=== PATIENT | male | born 1950 | race Caucasian/White ===

== ENCOUNTER 2018-12-21 22:39 | Inpatient (IN) | payer OTHER ==
[~2018-12-21] VITALS: Ht 188 cm; Wt 99.3 kg
[~2018-12-21 22:39] MED LIST: ASPIRIN325 PO; BYSTOLIC 5 MG5 M1 PO; CARDIZEM CD180 MG PO; COLACE100 MG PO; COZAAR 50 MG TA50 M2 PO; ENOXAPARIN100 MG/11 SUBQ; IMDUR 30 MG TAB30 M1; LIVALO2 MG PO; MULTAQ400 MG PO; NITROGLYCERIN0.4 MG; NITROGLYCERIN0.4 MG SUBLING; PACERONE 200 M200 M1 PO; PROTONIX40 M1 PO; PROTONIX40 M2 PO; SAVAYSA60 MG PO; ZOCOR 10 MG TAB10 MG PO
[2018-12-21 22:40] VITALS: BP 154/78
[2018-12-21] MEDS ORDERED: ASPIR 8181 MG PO (22:50)
[2018-12-21] MEDS ORDERED: ELIQUIS5 MG PO (22:53)
[2018-12-21] MEDS ORDERED: ZYPITAMAG2 MG PO (22:54)
[2018-12-22 03:25] LABS: HEMATOCRIT 42.9 % (42.0-52.0); HEMOGLOBIN 14.3 gm/dL (14.0-18.0); MCH 29.9 pg (26.0-34.0); MCHC 33.4 g/dL (28.0-37.0); MCV 89.6 fL (80.0-100.0); RBC 4.79 mil/uL (4.50-6.00); RDW 13.3 % (10.5-14.5); WBC 13.4 thou/uL (4.0-11.0)
[2018-12-22 03:44] LABS: ANION GAP 11 mmol/L (7-16); BUN 18 mg/dL (7-18); CALCIUM 9.5 mg/dL (8.5-10.1); CHLORIDE 104 mmol/L (98-107); CHOLESTEROL 111 mg/dL (<200); CO2 26 mmol/L (21-32); CREATININE 1.3 mg/dL (0.7-1.3); GLUCOSE 154 mg/dL (74-106); HDL CHOLESTEROL 39 mg/dL (>40); LDL CHOLESTEROL 54 mg/dL (<100); POTASSIUM 4.3 mmol/L (3.5-5.1); SODIUM 141 mmol/L (136-145); TC:HDL 2.8 Ratio (Not establshd); TRIGLYCERIDE 91 mg/dL (<150); VLDL 18 mg/dL (<40)
[2018-12-22 03:56] LABS: SERUM ASSESSMENT Clear
--- NOTE | 2018-12-22 04:38 | NUR ---
PT ARRIVED UNIT AT ABOUT 2230 FROM [place]. PT A/OX4, VITAL SIGHS STABLE, ASSESSMENT CHARTED, NSR ON THE MONITOR. PT COMPLAINED OF CHEST RATED AT 4. PT WAS ON NITROGLYCERIN DRIP, AND HEPARIN DRIP. PT STATED THE FENTANYL HE HAD RECIEVED AT [facility] HAD HELPED WITH THE CHEST PAIN. HE STATED THE PAIN WAS NON-RADIATING. NITRO AND HEPARIN DRIP CONTINUED ORDERED. AT ABOUT 0000, PT RATED CHEST PAIN AT 5. FENTANYL WAS GIVEN WHICH SEEMED TO HELP. CONSENTS SIGNED, ADMISSION COMPLETED, MEDICATIONS RECONCILLED. PT ABLE TO AMBULATE TO THE BATHROOM INDEPENDEDNTLY BUT ENCOURAGED TO CALL FOR HELP WHEN/ NEEDED. PT RESTED WELL FOR THE REST OF THE NIGHT. DID NOT OMPLAIN MUCH ABOUT THE CHEST PAIN. NPO SINCE MIDNIGHT UNTILL SEEN BY CARDIOLOGY. IN ROOM RESTING. WILL CONTINUE TO CLOSELY MONITOR.
[2018-12-22 05:27] VITALS: BP 116/69
[2018-12-22 08:00] VITALS: BP 129/65
--- NOTE | 2018-12-22 08:47 | EKG ---
[place] [address] [facility] [place] [address] ELECTROCARDIOGRAM REPORT Name: ALEXANDER MURCIA Room #: 219-P ADM IN M.R.#: [id number] ������������������ Admission: 12/21/18 ������������������ Attend Phys: Nik Andersen MD Discharge: ������������������ Date of : 46 Report #: [id number] ����������������������������������������������������������������� [id number] THIS REPORT FOR: //name// 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 : 1950 Requested By: Xuan Oneal Order Number: [id number] MD: Alton Bertrand Measurements Intervals [place] Rate: 69 P: 55 CT: 178 QRS: 41 QRSD: 98 T: 23 QT: 391 QTc: 419 Interpretive Statements Sinus rhythm Small inferior Q waves Borderline T wave abnormalities Compared to ECG 10/24/2015 23:40:28 Sinus bradycardia no longer present Electronically Signed On 12-22-2018 8:47:09 CDT by Alton Bertrand [email or web address] ��������������������������������������������� <ELECTRONICALLY SIGNED> ���������������������������������������� By: Alton Bertrand MD, [facility] ��������������������������������������������� 12/22/18 0847 8 8 Alton Bertrand MD, [facility] /EPI
--- NOTE | 2018-12-22 16:43 | NUR ---
PT ALERT AND ORIENTED TIMES FOUR. VSS, 96%RA, SR ON TELE. C/O HEADACHE PRN PAIN MEDICATION GIVEN WITH GOOD RELEIF. PT TOLERATES MEDS AND MEALS. PT UP WALKING AROUND IN HALLWAYS WITH STEADY GAIT. AT BEDSIDE. PT PROGRESSING TOWRADS POC GOALS.
[2018-12-22 19:56] VITALS: BP 132/68
[2018-12-23 05:18] LABS: HEMATOCRIT 44.7 % (42.0-52.0); HEMOGLOBIN 14.8 gm/dL (14.0-18.0); MCH 30.3 pg (26.0-34.0); MCV 91.6 fL (80.0-100.0); RBC 4.88 mil/uL (4.50-6.00); WBC 10.7 thou/uL (4.0-11.0)
[2018-12-23 05:22] LABS: CALCIUM 9.2 mg/dL (8.5-10.1); CREATININE 1.3 mg/dL (0.7-1.3); POTASSIUM 3.9 mmol/L (3.5-5.1)
--- NOTE | 2018-12-23 05:36 | NUR ---
ASSUMED CARE AROUND 1900. AXOX4. ADMIT WITH CHEST PAIN. DENIES CHEST PAIN. MINOR HEADACHE. TX PER MD ORDER AND MIDWAY THRU, REPORTS RELIEF. NEGATIVE TROPONIN IN AM. OBTAINED AN ORDER TO OK TO DC TELE WHILE IN SHOWER. NO S/S ACUTE DISTRESS NOTED OR REPORTED AT THIS TIME. WILL CONT TO MOTNITOR FOR ANY CHANGES IN CONDITION.
[2018-12-23 06:00] VITALS: BP 147/73
--- NOTE | 2018-12-23 08:34 | EKG ---
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 : 1950 Requested By: Nisreen Aldrich Order Number: [id number] MD: Vance Morgan Measurements Intervals [place] Rate: 70 P: 54 [place]: 170 QRS: 52 QRSD: 102 T: 33 QT: 389 QTc: 420 Interpretive Statements Sinus rhythm Abnormal inferior Q waves Borderline T wave abnormalities Compared to ECG 12/22/2018 07:29:36 No significant changes Electronically Signed On 12-23-2018 8:34:24 CDT by Vance Morgan [email or web address] ��������������������������������������������� <ELECTRONICALLY SIGNED> ���������������������������������������� By: Vance Morgan MD ��������������������������������������������� 12/23/1834 1 1 Vance Morgan MD /KHUSHBU
[2018-12-23 09:20] VITALS: BP 129/76
[2018-12-23] MEDS ORDERED: PROTONIX40 M1 PO (10:25)
[2018-12-23 11:01] VITALS: BP 129/76
--- NOTE | 2018-12-23 11:09 | NUR ---
VSS. PT DENIES ANY PAIN OR DISCOMFORT. SINUS RHYTHM ON THE MONITOR. UP AD CAL IN ROOM. AMBULATING AROUND UNIT. OKAY TO D/C PER CARIDOLOGY. FOLLOW UP APPOINTMENT WITH DR. TAMAYO ALREADY SCHEDULED FOR TOMORROW 12/24. DISHCARGE SUMMARY REVIEWED AND SENT HOME WITH PATIENT. SCRIPT FOR PROTONIX GIVEN. IV'S TAKEN OUT. TELE MONITOR OFF. PATIENT DENIES ANY QUESTIONS OR CONCERNS AT THIS TIME.
== END 2018-12-23 12:06 | disposition home or self-care (01) | DRG 303 ==
LOC: 2N 22:39 → ENTRNSPT 12-23 11:22 → EDTRNSPTSTS 12-23 11:26 → 2N 12-23 12:06
PROVIDERS: Nurse Practitioner Family; Nurse Practitioner Gerontology; ADMIT Hospitalist
DX: I25.110 Atherosclerotic heart disease of native coronary artery with unstable angina pectoris (principal); I10 Essential (primary) hypertension; E78.5 Hyperlipidemia, unspecified; E78.00 Pure hypercholesterolemia, unspecified; K21.9 Gastro-esophageal reflux disease without esophagitis; I48.0 Paroxysmal atrial fibrillation; G89.4 Chronic pain syndrome; I25.2 Old myocardial infarction; Z95.1 Presence of aortocoronary bypass graft; Z95.5 Presence of coronary angioplasty implant and graft; Z79.01 Long term (current) use of anticoagulants; Z79.82 Long term (current) use of aspirin; Z79.899 Other long term (current) drug therapy; Z88.5 Allergy status to narcotic agent
CPT/HCPCS: 10081

== ENCOUNTER 2018-12-24 09:38 | Inpatient (IN) | payer OTHER ==
[~2018-12-24] VITALS: Ht 182.9 cm; Wt 107.5 kg
--- NOTE | ~2018-12-24 | O ---
[facility] [place] [address] OPERATIVE REPORT Name: ALEXANDER MURCIA Room #: 210-P [facility] IN M.R.#: [id number] Admission: 12/24/18 ������������������ Attend Phys: Brian Schmidt MD Discharge: ������������������ Date of : 48 Report #: [id number] THIS REPORT FOR: //name// CC: Brian Guzmán DATE OF SERVICE: 12/26/2018 PREOPERATIVE DIAGNOSIS: Acute cholecystitis. POSTOPERATIVE DIAGNOSIS: Acute cholecystitis. OPERATIVE PROCEDURE: Laparoscopic cholecystectomy. SURGEON: Dane Damon M.D. INDICATIONS FOR THE PROCEDURE: The patient is a 67-year-old male who presents with complaints of right upper quadrant pain for one day. The patient's clinical exam and ultrasound scan that was done showed features of acute cholecystitis. The patient was advised laparoscopic cholecystectomy. The patient showed understanding and agreed to proceed. DESCRIPTION OF PROCEDURE: After explaining to the patient in detail, an informed consent was obtained. The patient was identified in the preoperative holding area. The patient was transferred to the operating room and was placed in supine position. Sequential compressive devices were placed for DVT prophylaxis. Preoperative antibiotics were given. After induction of anesthesia, the abdomen was prepped and draped in a sterile fashion. Through a right upper quadrant 1 cm incision and using Optiview technique, peritoneal cavity was entered and pneumoperitoneum was created. Under direct vision, another 5-mm trocar was placed through a supraumbilical incision, another 5-mm trocar was placed in the epigastrium and one in the right lateral subcostal region. On initial inspection, the patient was noted to have a severely inflamed gallbladder that appeared very edematous and turgid. The fundus of the gallbladder was ____. There was a small ____ noted just on the infundibulum of the gallbladder. Using a laparoscopic needle, approximately about 50 mL of thick bile was removed. I started ____ dissection at the Calot's triangle was very difficult and the exposure was getting difficult and therefore, I started at the fundus first approach. I started to take down the fundus using hook electrocautery. There was oozing from the liver bed and from the gallbladder tissue. However, because of the severe inflammation, it was noted. I continued dissection of the fundus. The proximal transverse colon was also found to be adherent onto the dome of the gallbladder, which was gently dissected off. I continued dissection towards the infundibulum. Dissection was very tedious and difficult with abnormal anatomy and adherent adhesion and [facility] [address] [place] [address] OPERATIVE REPORT Name: ALEXANDER MURCIA Room #: 210-P [facility] IN ..#: [id number] Admission: 12/24/18 ������������������ Attend Phys: Brian Schmidt MD Discharge: ������������������ Date of : 48 Report #: [id number] bleeding. I then identified the cystic artery, which was then isolated. The peritoneal reflections along the neck of the gallbladder were gently dissected off. The cystic duct was identified and was isolated from the surrounding structures. I was finally able to divide the cystic artery, double clipped proximally, single clip applied distally and was then divided. The cystic duct was then divided using 2 clips proximally and 1 clip distally as the cystic duct caliber was big. I then placed an Endoloop onto the cystic duct stump. The gallbladder was finally removed from the liver bed and was retrieved using an EndoCatch through the lateral most incision. Thorough saline irrigation of this area was done and absolute hemostasis was ensured. I sprayed Ristocetin over the liver bed area for good hemostasis. A 19-Sammarinese CECILIO drain was placed through the lateral most incision. The incisions were closed with 4-0 Monocryl. The lateral most incision was closed in 2 layers using 0 Vicryl for the fascia. Skin was closed with 4-0 Monocryl for all the incisions. Approximately, about 10 mL of lidocaine and Marcaine mix was injected into all the incisions. The patient was awoken from anesthesia and was transferred to the recovery room in stable condition. ESTIMATED BLOOD LOSS: Approximately 200 mL. CONDITION OF THE PATIENT: Stable. FLUIDS GIVEN: Per Anesthesia notes. SPECIMEN SENT: Gallbladder. COMPLICATIONS: None. ANESTHESIA: General anesthesia. ��������������������������������������������� ���������������������������������������� By: ��������������������������������������������� 1310 1655 Dane Damon MD /nt
[~2018-12-24 09:38] MED LIST changes: +ASPIR 8181 MG PO; +ELIQUIS5 MG PO; +ZYPITAMAG2 MG PO
[2018-12-24 09:43] VITALS: BP 176/86
[2018-12-24 10:15] LABS: HEMOGLOBIN 15.2 gm/dL (14.0-18.0); MCH 30.5 pg (26.0-34.0); MCHC 34.5 g/dL (28.0-37.0); MCV 88.3 fL (80.0-100.0); PLATELET COUNT 212 thou/uL (150-400); RBC 4.98 mil/uL (4.50-6.00); RDW 13.1 % (10.5-14.5); WBC 20.4 thou/uL (4.0-11.0)
[2018-12-24 10:25] LABS: CALCIUM 9.9 mg/dL (8.5-10.1); CREATININE 1.3 mg/dL (0.7-1.3)
[2018-12-24 10:31] LABS: ALBUMIN 3.9 g/dL (3.4-5.0); TOTAL PROTEIN 8.1 g/dL (6.4-8.2)
[2018-12-24 10:58] LABS: ABSOLUTE NEUTROPHILS 18.4 thou/uL (1.4-8.2); PLATELET ESTIMATE NORMAL
[2018-12-24 12:22] LABS: URINE BILIRUBIN NEGATIVE (Negative); URINE BLOOD 1+ (Negative); URINE CLARITY CLEAR; URINE COLOR YELLOW; URINE GLUCOSE-RANDOM* NEGATIVE (Negative); URINE KETONES 2+ (Negative); URINE LEUKOCYTES-REFLEX NEGATIVE (Negative); URINE NITRITE-REFLEX NEGATIVE (Negative); URINE PROTEIN (DIPSTICK) TRACE (Negative); URINE SPECIFIC GRAVITY 1.025 (1.005-1.035); URINE UROBILINOGEN 0.2 E.U./dl (0.2-1.0)
[2018-12-24 12:29] VITALS: BP 177/90
[2018-12-24 12:30] LABS: BACTERIA-REFLEX None Seen /HPF (None Seen); CASTS None Seen /LPF (None Seen); CRYSTALS None Seen /LPF (None Seen); SQUAMOUS None Seen /LPF (0-3); URINE RBC 0-2 Rare /HPF (0-2); URINE WBC-REFLEX None Seen /HPF (0-5)
[2018-12-24 12:32] VITALS: BP 177/90
[2018-12-24 12:39] VITALS: BP 177/90
[2018-12-24 13:21] VITALS: BP 187/75
--- NOTE | 2018-12-24 15:19 | NUR ---
PT ARRIVED TO UNIT IN STABLE CONDITION FROM ED AT 12:53 C/O UPPER ABD PAIN. PAIN MEDS GIVEN ORDERED. ADMISSION ASSESSMENT COMPLETED. A&O,X4. UP AD CAL. SKIN INTACT. BRUISING NOTED FROM OLD IV STICKS ON RECENT ADMISSION. HX CARDIAC STENTS, BYPASS SURGERY, HTN. NOTIFIED PHYSICIAN ABOUT TELEMETRY, NO TELEMETRY AT THIS TIME. SOME CONSTIPATION NOTED, LAST BM 12/21 - PT STATES HE HAS NOT BEEN EATING REGULARLY. AT BEDSIDE. PT WALKING IN HALLWAYS NOW. WILL CONTINUE TO MONITOR.
[2018-12-24 19:50] VITALS: BP 152/68
[2018-12-25 01:37] VITALS: BP 135/62
--- NOTE | 2018-12-25 03:50 | NUR ---
PT IS UP AD CAL. C/O ABDOMINAL PAIN AND GETTING RELIEF FROM IV DIULADID. PT GIVEN TYLENOL FOR SOME HEADACHE AND REPORTED VERY LITTLE TO ALMOST NO RELIEF.NO ISSUES WITH URINATION. DENIES SOA. SOME NAUSEA BUT HE HAS NOT REQUIRED ANY MEDS.NO CHEST PAIN, JUST SOME EPIGASTRIC DISCOMFORT.CALLS APPROPRIATELY. CALL LIGHT WITHIN REACH.
--- NOTE | 2018-12-25 08:19 | EKG ---
[address] [place] [address] ELECTROCARDIOGRAM REPORT Name: ALEXANDER MURCIA Room #: 423-1 ADM IN M.R.#: [id number] ������������������ Admission: 12/24/18 ������������������ Attend Phys: Brian Schmidt MD Discharge: ������������������ Date of : 48 Report #: [id number] ����������������������������������������������������������������� [id number] THIS REPORT FOR: //name// [facility] ED Test Date: 2018-12-24 Test Time: 09:44:48 Pat Name: ALEXANDER MURCIA Department: Room: [facility] Gender: M Manager Proposal: YORDY : 1950 Requested By: Jason Rangel Order Number: [id number] MD: Vance Morgan Measurements Intervals [place] Rate: 73 P: 48 [place]: 162 QRS: 45 QRSD: 101 T: -4 QT: 458 QTc: 505 Interpretive Statements Sinus rhythm Probable left atrial enlargement Abnormal inferior Q waves Borderline T abnormalities, anterior leads Compared to ECG 12/23/2018 07:22:47 Electronically Signed On 12-25-2018 8:18:50 CDT by Vance Morgan [email or web address] ��������������������������������������������� <ELECTRONICALLY SIGNED> ���������������������������������������� By: Vance Morgan MD ��������������������������������������������� 12/25/18817 3 Vance Morgan MD /KHUSHBU
--- NOTE | 2018-12-25 11:43 | NUR ---
Assumed pt care at 7am.Pt up adlib in the hallways with steady gait.Assessment completed.vss.Pt c/o headache and constipation.Dr Schmidt and Marlys geophysical support specialist here, order noted.Dulcolax supp given.Will continue to monitor.
--- NOTE | 2018-12-25 14:22 | NUR ---
Nutrition: pt admitted with abdominal/sternal pain. Seen due to high risk screen for weight loss/poor intake. Pt just D/C'ed following an admit for CP. Hx of CABG x 6, [place] x 3, HTN, HLD. Now with acalculus cholecystitis which is cause of epigastric pain, plan choly tomorrow. Current weight down 5# from usual (2%, BMI 29). Pt reports decreased apetite past few days due to pain but appears well nourished. Provided handouts/menus on heart healthy diet and fat restriction post choly. Consider low nutrition risk.
--- NOTE | 2018-12-25 15:14 | NUR ---
PT ADMITTED RELATED TO ABDOMINAL/STERNAL PAIN. CM REVIEWED CHART AND SPOKE WITH CARE TEAM. CM MET WITH PT AND SPOUSE AT BEDSIDE THIS DAY. PT IS A&O X4. CM ROLE INTRODUCED. PT INDICATED HE LIVES IN A HOUSE WITH HIS WITH 2 STEPS TO ENTER AND 2 FULL FLIGHT OF STEPS INSIDE. PT INDICATED HE COULD STAY ON MAIN LEVEL OF THE HOUSE IS NEEDED UPON DC. 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 PT INDICATED HE ANTICIPATES RETURNING HOME ONCE MEDICALLY STABLE. CARE TEAM INDICATED THAT PT IS TO BE TRANSFERED TO [facility] ROOM. CM TO FOLLOW INDICATED WITH DC PLANNING.
[2018-12-25 15:20] VITALS: BP 149/76
[2018-12-25 16:00] VITALS: BP 158/76
--- NOTE | 2018-12-25 16:46 | NUR ---
PT ARRIVED TO UNIT AT APPROX 1600 WITH BELONGINGS ACCOMPANIED BY SPOUSE AND NURSING STAFF. PT ALERT AND ORIENTED, C/O HEADACHE, VSS-- HR ELEVATED AFIB ON MONITOR- CARDIOLOGY NOTIFIED ORDERS RECEIVED. PT UP AD CAL, DENIES SOB, CHEST PAIN. O2 SATS WNL ON ROOM AIR. TELE PUT ON, ADMIT STRIP PRINTED AND DOCUMENTED. WILL AWAIT FURTHER ORDERS NEEDED. PT DENIES CONCERNS AT THIS TIME.
--- NOTE | 2018-12-25 17:59 | NUR ---
PT CONTINUES TO BE ALERT AND ORIENTED, C/O ABD DISCOMFORT- PLAN FOR LAP JAMES TOMORROW. DR. GALAN VISITED PT, CARDIZEM BOLUS AND DRIP ORDERED, GTT CURRENTLY AT 10MG PER ORDERS. ORDERS RECEIVED TO MAINTAIN DILT GTT UNTIL DC'D, TITRATE NEEDED. CONT TO BE AFIB ON MONITOR BETTER CONTROLLED IN 90S LOW 100S, 120S-130S WITH ACTIVITY. PT DENIES CONCERNS AT THIS TIME, HOPEFUL FOR SURGERY IN AM. WILL CONT TO MONITOR AND FOLLOW POC.
[2018-12-25 20:02] VITALS: BP 140/80
[2018-12-25 23:33] VITALS: BP 128/66
[2018-12-26] VITALS (8 sets, daily range): BP systolic 105–126; BP diastolic 54–68
[2018-12-26 05:12] LABS: HEMATOCRIT 39.6 % (42.0-52.0); HEMOGLOBIN 13.3 gm/dL (14.0-18.0); MCH 30.6 pg (26.0-34.0); MCHC 33.7 g/dL (28.0-37.0); MCV 90.8 fL (80.0-100.0); RBC 4.36 mil/uL (4.50-6.00); RDW 13.7 % (10.5-14.5); WBC 15.4 thou/uL (4.0-11.0)
[2018-12-26 05:26] LABS: CALCIUM 8.7 mg/dL (8.5-10.1); CREATININE 1.4 mg/dL (0.7-1.3); POTASSIUM 3.7 mmol/L (3.5-5.1)
--- NOTE | 2018-12-26 05:39 | NUR ---
RECEIVED REPORT AROUND 1919; PT. ON BED; RELATIVE AT BED SIDE; ST. 12/31 PAIN; REFUSED PRN PAIN MEDICATION WITH HS MEDICATION; DURING RE-ASSESSMENT PT. RESTLESS; UNCOMFORTABLE; ST. NO HAVING PAIN; HS MEDICATION GIVEN; C/O BLOATED ABDOMEN; ABLE TO PASS GAS; AT 2330 TEMPERATURE 100'S; VENTILATOR ON; A/C ON; AFTER 30 MIN TEMPERATURE 99; AROUND 0130 TEMPERATURE 98.5; C/O ABDOMEND PAIN PRN PAIN MEDICATION GIVEN; EDUCATED ABOUT PAIN MANAGEMENT; ST. UNDERSTANDING; PAIN REASSESSMENT ; ABLE TO REST AFTER 0130 WITH EYES CLOSE; HR RYTHM A-FIB/A-FLUTTER; NPO AFTER MIDNIGHT; NO CONSENT SIGNED DUE TO PT. ST. DOCTOR HAS NOT EXPLAINED PROCEDURE ON DETAIL; WILL PASS ON REPORT; ASSESSMENT CHARGED; FOLLOWING POC; WILL PASS ON REPORT.
--- NOTE | 2018-12-26 15:18 | EKG ---
[address] [email or web address] [place] [address] ELECTROCARDIOGRAM REPORT Name: ALEXANDER MURCIA Room #: 210-P ADM IN M.R.#: [id number] ������������������ Admission: 12/24/18 ������������������ Attend Phys: Brian Schmidt MD Discharge: ������������������ Date of : 46 Report #: [id number] ����������������������������������������������������������������� [id number] THIS REPORT FOR: //name// [facility] Test Date: 2018-12-25 Test Time: 15:20:43 Pat Name: ALEXANDER MURCIA Department: Room: 210 Gender: M Traffic Chief: Ciarra JIMENEZ : 1950 Requested By: Brian Schmidt Order Number: [id number] MD: Rodrigo Lindsey Measurements Intervals [place] Rate: 143 P: [place]: QRS: 47 QRSD: 92 T: 243 QT: 267 QTc: 412 Interpretive Statements Atrial fibrillation Inferior infarct, age indeterminate Baseline wander Nonspecific ST-T wave changes Compared to ECG 12/24/2018 09:44:48 Early repolarization now present Sinus rhythm no longer present Electronically Signed On 12-26-2018 15:18:39 CDT by Rodrigo Lindsey [email or web address] ��������������������������������������������� <ELECTRONICALLY SIGNED> ���������������������������������������� By: Rodrigo Lindsey MD ��������������������������������������������� 12/26/18 1518 1520 1520 Rodriog Lindsey MD /EPI
--- NOTE | 2018-12-26 15:26 | EKG ---
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 : 1950 Requested By: Nisreen Aldrich Order Number: [id number] MD: Rodrigo Lindsey Measurements Intervals [place] Rate: 81 P: [place]: QRS: 40 QRSD: 108 T: -49 QT: 385 QTc: 447 Interpretive Statements Atrial fibrillation Nonspecific ST-T wave changes Early transition Compared to ECG 12/24/2018 09:44:48 atrial fibrillation ventricular response controlled Electronically Signed On 12-26-2018 15:26:47 CDT by Rodrigo Lindsey [email or web address] ��������������������������������������������� <ELECTRONICALLY SIGNED> ���������������������������������������� By: Rodrigo Lindsey MD ��������������������������������������������� 12/26/18 1526 9 9 Rodrigo Lindsey MD /EPI
--- NOTE | 2018-12-26 18:44 | NUR ---
PT BACK TO FLOOR FROM SURGERY. VSS. AFEBRILE. LAP SITES INTACT. R UQ CECILIO DRAIN INTACT. PT REPORTS PAIN IN SITE OF CECILIO DRAIN. WILL CONTINUE TO MONITOR. PT RESTING IN BED WITH CALL LIGHT IN REACH. WILL CONTINUE TO MONITOR.
[2018-12-27] VITALS: BP 125/72
[2018-12-27 05:20] VITALS: BP 126/71
[2018-12-27 07:45] VITALS: BP 138/69
--- NOTE | 2018-12-27 07:51 | NUR ---
pt progressing towards goals thru the night, pt now up adlib to br, prn pain meds given for c/o rlq pain, sara drain with sang. drainage thru the noc, reinforced sara dressing, vss, report given to next shift to con't with ppoc.
[2018-12-27 11:33] VITALS: BP 143/75
[2018-12-27 13:58] LABS: ALBUMIN 2.9 g/dL (3.4-5.0); CALCIUM 8.9 mg/dL (8.5-10.1); CREATININE 1.5 mg/dL (0.7-1.3); POTASSIUM 4.3 mmol/L (3.5-5.1); TOTAL BILIRUBIN 0.8 mg/dL (<0.1-1.0); TOTAL PROTEIN 6.6 g/dL (6.4-8.2)
[2018-12-27 14:21] LABS: HEMATOCRIT 41.1 % (42.0-52.0); HEMOGLOBIN 13.5 gm/dL (14.0-18.0); MCH 30.3 pg (26.0-34.0); MCHC 32.8 g/dL (28.0-37.0); MCV 92.2 fL (80.0-100.0); RBC 4.45 mil/uL (4.50-6.00); WBC 20.3 thou/uL (4.0-11.0)
--- NOTE | 2018-12-27 16:37 | NUR ---
ASSUMED CARE OF PT AT 15:30. ASSESSMENT COMPLETED, CHARTED. A&O,X4. C/O RUQ ABD PAIN S/P LAP JAMES, PAIN MEDS GIVEN ORDERED. 4 LAP SITES INTACT WITH DERMABOND, NO BLEEDING. CECILIO DRAIN IN PLACE RUQ, 50 ML SEROUSANGIOUS DRAINAGE. ROOM AIR. A. FLUTTER. DENIES SOA OR CHEST PAIN. REPORTING NEW ONSET BURPING POSSIBLY DUE TO NEW MEDS. NO OTHER CHANGE IN STATUS. WILL CONTINUE TO MONITOR UNTIL EOS.
[2018-12-27 19:21] VITALS: BP 157/87
--- NOTE | 2018-12-28 03:38 | NUR ---
RECEIVED PT'S CARE AROUND 1910; PT. ON BED; NO C/O PAIN; DURING ASSESSMENT ST. FEELING SOME RUQ PAIN, BUT NOT PAIN MEDICATION REQUESTED; ABLE TO HAVE A BM; AROUND 0040 PT. WOKE UP FEELING PAIN OVER RUQ; REQUESTED PRN PAIN MEDICATION; IV PRN PAIN MEDICATION GIVEN; EDUCATED ABOUT PAIN MANAGEMENT; ST. UNDERSTANDING; PO PRN PAIN MEDICATION GIVEN AROUND 0200; PA RE-ASSESSMENT ST. DECREASE PAIN; AT 2330 PT'S HEART RHYTHM CONVERT FROM A-FLUTTER TO NSR; STRIP ON CHART; ASSESSMENT CHARGED; FOLLOWING POC; WILL PASS ON REPORT.
[2018-12-28 04:10] VITALS: BP 146/83
[2018-12-28 08:45] VITALS: BP 146/87
[2018-12-28 11:20] VITALS: BP 121/90; BP 132/86
[2018-12-28 16:24] VITALS: BP 134/85
[2018-12-28 16:27] VITALS: BP 134/85
--- NOTE | 2018-12-28 17:26 | NUR ---
ASSUMED CARE OF PT AT SHIFT CHANGE. ASSESSMENTS CHARTED. MEDS GIVEN PER NOV. PT ALERT AND ORIENTED, VSS, C/O MILD ABDOMINAL PAIN, CONTROLLED WITH PO PAIN MEDS. NSR ON MONITOR. O2 SATS WNL ON ROOM AIR, DENIES CHEST PAIN, NO S/SX OF CARD OR RESP DISTRESS NOTED. PT UP AD CAL AND WALKED AROUND UNIT. CECILIO DRAIN REMOVED BY SURGEON, CURRENTLY DRESSED WITH GAUZE AND TAPE WITH MINIMAL DRAINAGE- WILL CONT TO MONITOR AND CHANGE NEEDED. PT C/O DIARRHEA, SURGEON NOTIFIED WHILE ROUNDING, NO NEW ORDERS. PT DENIES CONCERNS AT THIS TIME. WILL CONT TO MONITOR AND FOLLOW POC.
[2018-12-28 19:56] VITALS: BP 160/81
[2018-12-29] VITALS (7 sets, daily range): BP systolic 137–167; BP diastolic 69–89
[2018-12-29 03:20] LABS: HEMATOCRIT 35.7 % (42.0-52.0); HEMOGLOBIN 11.9 gm/dL (14.0-18.0); MCH 30.3 pg (26.0-34.0); MCHC 33.3 g/dL (28.0-37.0); RBC 3.92 mil/uL (4.50-6.00); RDW 13.9 % (10.5-14.5); WBC 6.5 thou/uL (4.0-11.0)
[2018-12-29 03:37] LABS: ALBUMIN 2.5 g/dL (3.4-5.0); CALCIUM 8.4 mg/dL (8.5-10.1); CREATININE 1.2 mg/dL (0.7-1.3); POTASSIUM 3.9 mmol/L (3.5-5.1); TOTAL BILIRUBIN 0.4 mg/dL (<0.1-1.0); TOTAL PROTEIN 6.3 g/dL (6.4-8.2)
--- NOTE | 2018-12-29 03:54 | NUR ---
PT AMBULATED HALLS BEFORE RETIRING TO BED AND RESTING QUIETLY THRU THE NOC, PRN PAIN MEDS GEVEN AT HS FOR RLQ PAIN, REDRESSED HIS OLD CECILIO DRAIN SITE AND IT REMAINS CDI, VSS, PT HOPING TO GO HOME TODAY, WILL CON'T TO MONITOR PER PPOC.
[2018-12-29] MEDS ORDERED: AUGMENTIN 875-1 EACH PO (09:24)
[2018-12-29] MEDS ORDERED: FLAGYL500 M1 PO (09:25)
[2018-12-29] MEDS ORDERED: PACERONE 200 M200 M1 PO (15:39)
--- NOTE | 2018-12-30 16:06 | PATH ---
[facility] [address] [place] [address] PATHOLOGY RPT PROCEDURE Name: ALEXANDER WORTHINGTON Room #: 210-P DIS IN M.R.#: [id number] ������������������ Admission: 12/24/18 ������������������ Date of : 46 Discharge: 12/29/18 Report #: [id number] Path Case #: [id number] [facility] Accession Number: [id number] . 01 Material submitted: . GALLBLADDER . 01 Clinical history: . Acute cholecystitis . 02 Diagnosis: Gallbladder, cholecystectomy: - Marked acute, hemorrhagic and gangrenous cholecystitis associated with ulceration. - Cholelithiasis. - Hepatic parenchyma with abundant portal chronic inflammation and reactive changes, gallbladder bed hepatic parenchyma. (IUV/db; 12/30/2018) LBQ/12/30/2018 . 02 Electronically signed: . Sasha Sykes MD, Pathologist NPI- [id number] . 01 Gross description: . Received in formalin labeled "Alexander Worthington, gallbladder," is a ragged, previously opened gallbladder measuring 8.3 x 7.4 x 3.7 cm in greatest dimensions. The serosal surface is smooth to shaggy and light slater to dark brown in appearance. Due to the nature of the specimen, the infundibulum and fundus cannot be identified grossly. Two possible lymph nodes/possible liver segments are noted, measuring 1.3 x 1.2 x 0.6 cm and 1.5 x 1.2 x 0.7 cm. The mucosal surface is ragged and dark green-brown in appearance. Sectioning through the specimen reveals firm, yellow-slater to dark green cut surfaces, with a mucosa thickness of up to 0.2 cm and a gallbladder wall thickness of up to 1.2 cm. No polyps or nodules are noted grossly. A single calculus is present within the specimen container that is black and granular in appearance, measuring 1.3 cm in maximum dimension. The gallbladder is submitted representatively in cassettes A1 and A2. Both possible lymph nodes/possible liver segments are bisected and submitted entirely in cassette A3. (DAC; 12/29/2018) XDC/XDC . 02 Pathologist provided ICD-10: K80.12, K82.A1 . 02 [place] [address] PATHOLOGY RPT PROCEDURE Name: ALEXANDER WORTHINGTON Room #: 210-P DIS IN M.R.#: [id number] ������������������ Admission: 12/24/18 ������������������ Date of : 46 Discharge: 12/29/18 Report #: [id number] Path Case #: [id number] Specimen Comment: A courtesy copy of this report has been sent to Specimen Comment: [phone], , . Specimen Comment: Report sent to ,DR BANUELOS / DR TAMAYO Performed at: [address] [facility], [place] [id number] MD Albert Mejia MD Phone: [phone] Performed at: [address] [facility] [id number] MD Sasha Sykes MD Phone: [phone]
== END 2018-12-29 16:20 | disposition home or self-care (01) | DRG 853 ==
LOC: ER 09:38 → EROBS 11:35 → 2N 11:35 → 4E 11:35 → ENTRNSPT 12-25 15:40 → EDTRNSPTSTS 12-25 15:52 → 2N 12-25 16:06 → ENTRNSPT 12-29 16:04 → 2N 12-29 16:20
PROVIDERS: Emergency Medicine; Hospitalist; Surgery; ADMIT Hospitalist
PROC: 0FT44ZZ Resection of Gallbladder, Percutaneous Endoscopic Approach (ICD-10-PCS; principal; 2018-12-27)
PROC: 0FN44ZZ Release Gallbladder, Percutaneous Endoscopic Approach (ICD-10-PCS; principal; 2018-12-27)
DX: A41.9 Sepsis, unspecified organism (principal); K65.9 Peritonitis, unspecified; K81.0 Acute cholecystitis; I25.10 Atherosclerotic heart disease of native coronary artery without angina pectoris; E78.5 Hyperlipidemia, unspecified; G89.4 Chronic pain syndrome; E78.00 Pure hypercholesterolemia, unspecified; N18.3 Chronic kidney disease, stage 3 (moderate); I12.9 Hypertensive chronic kidney disease with stage 1 through stage 4 chronic kidney disease, or unspecified chronic kidney disease; K21.9 Gastro-esophageal reflux disease without esophagitis; I48.0 Paroxysmal atrial fibrillation; Z95.1 Presence of aortocoronary bypass graft; I25.2 Old myocardial infarction; Z88.8 Allergy status to other drugs, medicaments and biological substances; Z79.82 Long term (current) use of aspirin; Z79.899 Other long term (current) drug therapy; Z95.5 Presence of coronary angioplasty implant and graft
CPT/HCPCS: 10081; 10084; 50010; 50101; 50331; 50411; 50555; 50900; 51297; 51489; 51975; 52265; 52266; 52287; 53307; 54118; 55245; 56462; 56525; 56526; 56527; 62110; 62900; 70005

== ENCOUNTER → 2019-12-28 | Outpatient (CLI) | payer OTHER ==
[~2019-12-28] MED LIST changes: +AUGMENTIN 875-1 EACH PO; +COZAAR 50 MG TA50 M1 PO; +FLAGYL500 M1 PO; +KENALOG-1010 MG/ML TOP; +LIPITOR40 MG PO
== END ==
LOC: SJCVCIMAG 09:02
PROVIDERS: ATTEND Internal Medicine Cardiovascular Disease
DX: I25.812 Atherosclerosis of bypass graft of coronary artery of transplanted heart without angina pectoris (principal); I10 Essential (primary) hypertension; I48.0 Paroxysmal atrial fibrillation; E78.00 Pure hypercholesterolemia, unspecified; E78.5 Hyperlipidemia, unspecified; Z95.1 Presence of aortocoronary bypass graft

== ENCOUNTER → 2020-02-16 | Outpatient (CLI) | payer OTHER ==
[~2020-02-16] MED LIST changes: -COZAAR 50 MG TA50 M1 PO; -KENALOG-1010 MG/ML TOP; -LIPITOR40 MG PO
== END ==
LOC: SJCVC 10:16
DX: R00.1 Bradycardia, unspecified (principal); I48.0 Paroxysmal atrial fibrillation

== ENCOUNTER → 2020-03-04 | Outpatient (CLI) | payer OTHER ==
[~2020-03-04] MED LIST changes: +COZAAR 50 MG TA50 M1 PO; +KENALOG-1010 MG/ML TOP; +LIPITOR40 MG PO
[2020-03-04 10:15] LABS: ABSOLUTE NEUTROPHILS 4.2 thou/uL (1.4-8.2); BASOPHILS 0.3 % (0.0-2.0); EOSINOPHILS 1.1 % (0.0-3.0); HEMATOCRIT 43.1 % (42.0-52.0); HEMOGLOBIN 14.7 gm/dL (14.0-18.0); MCH 31.4 pg (26.0-34.0); MCHC 34.1 g/dL (28.0-37.0); PLATELET COUNT 176 thou/uL (150-400); POLYS 64.6 % (36.0-66.0); RBC 4.69 mil/uL (4.50-6.00); RDW 13.6 % (10.5-14.5); WBC 6.5 thou/uL (4.0-11.0)
[2020-03-04 10:39] LABS: ALBUMIN 3.9 g/dL (3.4-5.0); CALCIUM 8.9 mg/dL (8.5-10.1); CREATININE 1.4 mg/dL (0.7-1.3); POTASSIUM 4.2 mmol/L (3.5-5.1); TOTAL BILIRUBIN 0.9 mg/dL (0.2-1.0); TOTAL PROTEIN 6.8 g/dL (6.4-8.2)
== END ==
LOC: CAT 09:02
PROVIDERS: ATTEND Internal Medicine Cardiovascular Disease
DX: I25.10 Atherosclerotic heart disease of native coronary artery without angina pectoris (principal); I48.91 Unspecified atrial fibrillation; Z90.49 Acquired absence of other specified parts of digestive tract

== ENCOUNTER 2020-03-09 06:29 | Observation (INO) | payer OTHER ==
[~2020-03-09] VITALS: Ht 188 cm; Wt 97.1 kg
[~2020-03-09 06:29] MED LIST changes: -COZAAR 50 MG TA50 M1 PO; -KENALOG-1010 MG/ML TOP; -LIPITOR40 MG PO
[2020-03-09 07:39] LABS: BASOPHILS 0.4 % (0.0-2.0); EOSINOPHILS 1.5 % (0.0-3.0); HEMATOCRIT 43.7 % (42.0-52.0); HEMOGLOBIN 14.8 gm/dL (14.0-18.0); LYMPHOCYTES 22.7 % (24.0-44.0); MCH 31.3 pg (26.0-34.0); MCHC 33.9 g/dL (28.0-37.0); MCV 92.2 fL (80.0-100.0); MONOCYTES 10.7 % (1.0-8.0); PLATELET COUNT 169 thou/uL (150-400); POLYS 64.7 % (36.0-66.0); RBC 4.73 mil/uL (4.50-6.00); RDW 13.7 % (10.5-14.5); WBC 6.2 thou/uL (4.0-11.0)
[2020-03-09 07:43] LABS: CALCIUM 8.9 mg/dL (8.5-10.1); CREATININE 1.4 mg/dL (0.7-1.3); POTASSIUM 3.7 mmol/L (3.5-5.1)
[2020-03-09 07:48] LABS: APTT 21.8 Seconds (24.5-32.8); PROTIME 10.4 Seconds (9.3-11.4)
[2020-03-09 07:49] LABS: ALBUMIN 3.9 g/dL (3.4-5.0); TOTAL BILIRUBIN 0.8 mg/dL (0.2-1.0)
[2020-03-09] MEDS ORDERED: KENALOG-1010 MG/ML TOP (07:50)
--- NOTE | 2020-03-09 07:51 | EKG ---
[facility] [address] [facility] [place] [address] ELECTROCARDIOGRAM REPORT Name: ALEXANDER MURCIA Room #: REG [facility].#: [id number] Admission: 03/09/20 Attend Phys: Vance Morgan MD Discharge: Date of : 46 Report #: [id number] THIS REPORT FOR: cc: Babak Guzmán MD, Rene P. MD Lundgren,Alton Erazo MD [facility] ~ THIS REPORT FOR: //name// [facility] Test Date: 2020-03-09 Test Time: 07:35:09 Pat Name: ALEXANDER MURCIA Department: Room: Gender: Cw Operator: Cl CLIFFORD : 1950 Requested By: Vance Morgan Order Number: [id number] MD: Alton Bertrand Measurements Intervals [place] Rate: 64 P: 51 [place]: 176 QRS: 46 QRSD: 98 T: 47 QT: 399 QTc: 412 Interpretive Statements Sinus rhythm Normal tracing Compared to ECG 12/26/2018 07:30:51 Atrial fibrillation no longer present Electronically Signed On 03-09-2020 7:50:28 CDT by Alton Bertrand [email or web address] <ELECTRONICALLY SIGNED> By: Alton Bertrand MD, [facility] 03/09/20 0750 0735 0735 Alton Bertrand MD, [facility] /EPI
[2020-03-09] MEDS ORDERED: LIPITOR40 MG PO (07:52)
[2020-03-09] MEDS ORDERED: COZAAR 50 MG TA50 M1 PO (07:54)
--- NOTE | 2020-03-09 17:41 | NUR ---
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 HE IS ALERT ORIENTED X4. DENIES PAIN A THIS TIME. RESPIRATIONS EVEN NON LABORED. PLEASANT WITH CARE. ACCESS SITE TO RIGHT GROIN REMAINS INTACT. THERE IS MILD BLEEDNG POST PRECEDURE BUT IT DOES NOT SEEM WET. WILL CONT WITH PLAN OF CARE.
--- NOTE | 2020-03-09 18:32 | NUR ---
POST 6 HOURS REST, CALVILLO WAS D/MARY AND PATIENT STARTING SITTING WHEN FRESH BLEEDING WAS NOTED TO RIGHT GROIN. PRESSURE APPLIED FOR 15 MINUTES AND NEW DRESSING APPLIED. NO BLEED HAS BEEN NOTED AT THIS THIS TIME. PT STATES HE TOOK ANTICOAGULANTS. WILL CONT WIT PLAN OF CARE.
--- NOTE | 2020-03-09 18:54 | NUR ---
CARDIOLOGY RAIL OPERATIONS CONTROLLER PAGED TO PATIENT'S STATUS
[2020-03-09 19:00] VITALS: BP 129/68
[2020-03-09 23:00] VITALS: BP 136/85
[2020-03-10 08:02] VITALS: BP 117/57
[2020-03-10 08:55] LABS: HEMOGLOBIN 13.5 gm/dL (14.0-18.0); MCH 31.2 pg (26.0-34.0); MCHC 33.6 g/dL (28.0-37.0); MCV 92.8 fL (80.0-100.0); RBC 4.32 mil/uL (4.50-6.00); WBC 10.3 thou/uL (4.0-11.0)
[2020-03-10 10:43] VITALS: BP 117/57
--- NOTE | 2020-03-10 10:49 | NUR ---
noted possible dc home today, no anticipated needs. will cont following as needed for dc needs.
--- NOTE | 2020-03-10 12:38 | NUR ---
ASSUMMED PT CARE AT APPROXIMATELY 0700. PT A&O X4. ASSESSMENT CHARTED. FALL PRECAUTIONS IN PLACE. PT AMBULATES STEADY C STANDBY. PT DENIES HAVING CHEST PAIN. PT DENIES HAVING SOB. PT STATED HE HAD A HEADACHE. PT RECEIVED ANALESICS. PT STATED ANALGESICS HELPED RELIEVE PAIN. PT DISCHARGING HOME C SELF CARE. IV DC. TELE DC. PT RECEIVED DISCHARGE EDUCATION. PT STATED UNDERSTANDING AND DENIED HAVING FURTHER QUESTIONS. PT R GROIN DRY AND INTACT C DRY BLOOD. VITAL SIGNS STABLE. PT COMFORTABLE. PT DIEHAVING FURTHER CONCERNS. PT RECIEVED HOSPITAL TRANSPORT OFF UNIT.
--- NOTE | 2020-03-11 15:54 | P ---
[facility] [place] [address] PROCEDURE REPORT Name: ALEXANDER MURCIA [id number] Admission: 03/09/20 Attend Phys: Vance Morgan MD Discharge: 03/10/20 Date of : 46 Report #: [id number] THIS REPORT FOR: cc: Babak Guzmán MD, Rene P. MD Couchonnal, Luis F. MD ~ CC: Vance Guzmán ATRIAL FIBRILLATION ABLATION PREOPERATIVE DIAGNOSIS: Atrial fibrillation. POSTOPERATIVE DIAGNOSIS: Atrial fibrillation. HISTORY: The patient is a 69-year-old who has a history of coronary artery disease and paroxysmal atrial fibrillation, status post ablation by Dr. Baig back in 2014, who has had clinical recurrence. He is here for AFib ablation. ANESTHESIA: The patient underwent general anesthesia with no anesthesia-related complications. PROCEDURES PERFORMED: 1. Atrial fibrillation ablation, CPT code 34716. 2. Program stimulation pacing after IV drug infusion, CPT code 37188. 3. 3D mapping, CPT code 97171. 4. Intracardiac echo, CPT code 87874. 5. Second pathway ablation for atrial flutter, CPT code 21510. DESCRIPTION OF PROCEDURE: The patient underwent informed consent. We discussed the details of the procedure including the risks, which include but not limited to bleeding, infection, vascular damage, cardiac perforation, stroke, [place] as well as damage to the torres martinez conduction system requiring permanent pacemaker. He understood these risks and is willing to proceed. The patient was brought to the EP laboratory in a fasting and unsedated state and prepped and draped in a sterile fashion. At baseline, the patient was in sinus rhythm. The patient had a preprocedural CT scan showing two left and two right pulmonary veins. Next, I obtained access to the right femoral vein x 3, placing an 8, 9 and 7-Turkish short sheath using the modified Seldinger technique and then I placed a decapolar catheter into the coronary sinus for left atrial pacing and recording and an ICE catheter in the right atrium. Using intracardiac ultrasound, I created a 3D geometry of the left atrium with visualization of the two left and two right pulmonary veins. The patient did have a nice thin interatrial septum, but it did appear to be calcified on ultrasound. The patient was then systemically heparinized and a transseptal was performed using an SL1 sheath and a Vass needle. Of note, I could get my wire [facility] [address] [place] [address] PROCEDURE REPORT Name: ALEXANDER MURCIA Room #: 216-P [facility].#: [id number] Admission: 03/09/20 Attend Phys: Vance Morgan MD Discharge: 03/10/20 Date of : 46 Report #: [id number] into the left superior pulmonary vein, but I could not advance the SL1 into the left atrium. I then attempted to exchange to the cryo sheath, but this would not advance in the left atrium either. I then went back to the SL1 sheath and now I was able to get this into the left atrium. A second attempt with the cryo sheath was unsuccessful. Therefore, I placed the SL1 sheath back and performed balloon dilatation of the interatrial septum. After performing this, I could advance my SL1 sheath and then the cryo sheath into the left atrium with ease. Next, I used a Biosense Lemus Lasso catheter and created a 3D geometry and voltage map of the left atrium, which showed that all veins were reconnected except for the left inferior pulmonary vein. Therefore, I went into the left atrium with the cryoballoon and performed 4 freezes in the left superior pulmonary vein, first freeze was of 4 minutes' duration. Second freeze was of 110 seconds' duration and I came off early due to poor temps. I then performed 2 additional 4-minute freezes, the last 2 freezes had the best temperatures at -42 and -46 degrees respectively. The vein was then isolated after these freezes. I then went to the left inferior pulmonary vein, which appeared to be essentially isolated, but I wanted to further the ablation lesion previously performed. I therefore performed a 3-minute, followed by a 4-minute freeze of the left inferior pulmonary vein. I then turned my attention to the right superior pulmonary vein and performed a 120-second followed by 130-second freeze. The vein appeared to have isolated during the first freeze. The right inferior pulmonary vein underwent a single freeze of 200 seconds' duration and the vein isolated within 27 seconds. While performing isolation of the right-sided veins, phrenic nerve pacing was performed using the decapolar catheter placed at the subclavian vessel. I removed the cryoballoon from the left atrium and placed a Lasso catheter back and we created a detailed 3D voltage map and this showed that we had created a wide circumferential ablation of the pulmonary veins. I pulled the cryo sheaths to the right atrium and the patient was prepped for atrial flutter ablation. Using an 8-mm Biosense Lemus ablation catheter via a ramp sheath, an atrial flutter ablation was performed. Prior to ablation, the transisthmus conduction time was 50 milliseconds. Post-ablation transisthmus conduction time was 135 milliseconds with activation sequence consistent with bidirectional block. Ablation was performed at 70 crabtree and 60 degrees. Post-ablation, a basic EP study was performed. Of note, using the ablation catheter, I was able to localize the His. The AH interval was 90 milliseconds and the HV interval was 40 milliseconds. A basic EP study was performed and AV block was noted at 370 milliseconds. AV graham ERP was noted at 290 milliseconds at a [address] cycle length. Next, isoproterenol infusion was started at 2 mcg per minute. An AV block was noted at 300 milliseconds and atrial ERP was noted at 240 milliseconds at a [address] cycle length. Next, aggressive atrial burst pacing was performed under 300 milliseconds and I could not induce any AFib, atrial flutter or SVT. As such, the procedure was concluded. Using intracardiac ultrasound, I verified there [facility] [address] [place] [address] PROCEDURE REPORT Name: ALEXANDER MURCIA Room #: 216-P [facility] Yevgeniy Guo#: [id number] Admission: 03/09/20 Attend Phys: Vance Morgan MD Discharge: 03/10/20 Date of : 46 Report #: [id number] was no pericardial effusion. The patient then received systemic protamine and once the ACT was within acceptable range, catheters and sheaths were pulled and hemostasis was obtained. The patient awoke neurologically and hemodynamically intact. No complications and no significant bleeding. CONCLUSIONS: 1. Successful AFib ablation with re-isolation of the pulmonary veins. 2. Successful atrial flutter ablation with evidence of bidirectional block. 3. EP study with no evidence of inducible AFib, atrial flutter or SVT on or off isoproterenol. <ELECTRONICALLY SIGNED> By: Vance Morgan MD 03/11/20 1554 [id number] [id number] Vance Morgan MD /nt
--- NOTE | 2020-03-11 15:54 | D ---
[facility] [place] [address] DISCHARGE SUMMARY Name: ALEXANDER MURCIA Room #: 216-P [facility] Sari#: [id number] Admission: 03/09/20 Attend Phys: Vance Morgan MD Discharge: 03/10/20 Date of : 46 Report #: [id number] THIS REPORT FOR: cc: Babak Guzmán MD, Rene P. MD Couchonnal, Luis F. MD ~ THIS REPORT FOR: //name// CC: Vance Guzmán PREOPERATIVE DIAGNOSES: Atrial fibrillation and atrial flutter. POSTOPERATIVE DIAGNOSES: Atrial fibrillation and atrial flutter. PROCEDURES PERFORMED: Atrial fibrillation/atrial flutter ablation. HISTORY: The patient is a 69-year-old male with history of AFib, atrial flutter, who had clinical recurrence, here for repeat AFib ablation. He underwent successful re-isolation of all his pulmonary veins and atrial flutter ablation with no procedure-related complications. HOSPITAL COURSE: The patient was monitored in CCU overnight and did well. The night of the procedure, he did have some bleeding from the right femoral groin region and hemostasis was obtained. On the day of discharge, the patient was doing well. Denied any chest pain, fevers or chills. PHYSICAL EXAMINATION HEART: Regular rate and rhythm. LUNGS: Clear to auscultation bilaterally. GROIN: No significant bruising or hematoma. As such, he was deemed stable for discharge home on his same home medications including Eliquis therapy. We will not initiate antiarrhythmic drug therapy at this time. He will follow up in 3 months. <ELECTRONICALLY SIGNED> By: Vance Morgan MD 03/11/20 1554 [id number] Vance Morgan MD /nt
== END 2020-03-10 12:05 | disposition home or self-care (01) ==
LOC: CATH 06:29 → 2N 13:49 → CATH 14:33 → 2N 03-10 12:05
PROVIDERS: ADMIT Internal Medicine Cardiovascular Disease; ATTEND Internal Medicine Cardiovascular Disease
DX: I48.91 Unspecified atrial fibrillation (principal); I48.92 Unspecified atrial flutter
CPT/HCPCS: 10797; 62110; 62900; 65020; 65040; 70005

== ENCOUNTER → 2020-06-09 | Outpatient (CLI) | payer OTHER ==
[~2020-06-09] MED LIST changes: +COZAAR 50 MG TA50 M1 PO; +KENALOG-1010 MG/ML TOP; +LIPITOR40 MG PO
== END ==
LOC: SJCVC 14:10
PROVIDERS: ATTEND Internal Medicine Cardiovascular Disease
DX: I25.10 Atherosclerotic heart disease of native coronary artery without angina pectoris (principal); I48.0 Paroxysmal atrial fibrillation; I10 Essential (primary) hypertension; M19.90 Unspecified osteoarthritis, unspecified site; I25.2 Old myocardial infarction; E78.00 Pure hypercholesterolemia, unspecified; Z95.1 Presence of aortocoronary bypass graft; Z79.82 Long term (current) use of aspirin; Z88.5 Allergy status to narcotic agent; Z88.8 Allergy status to other drugs, medicaments and biological substances; Z82.49 Family history of ischemic heart disease and other diseases of the circulatory system

== ENCOUNTER → 2020-08-30 | Outpatient (CLI) | payer OTHER | LOC: SJCVC 12:51 | PROVIDERS: ATTEND Internal Medicine Cardiovascular Disease | DX: R94.31 Abnormal electrocardiogram [ECG] [EKG] (principal); I48.0 Paroxysmal atrial fibrillation; I25.10 Atherosclerotic heart disease of native coronary artery without angina pectoris; I10 Essential (primary) hypertension; E78.00 Pure hypercholesterolemia, unspecified; E78.5 Hyperlipidemia, unspecified; Z79.82 Long term (current) use of aspirin; Z79.899 Other long term (current) drug therapy ==

== ENCOUNTER → 2020-11-17 | Outpatient (CLI) | payer OTHER | LOC: SJCVC 15:06 | PROVIDERS: ATTEND Internal Medicine Cardiovascular Disease | DX: R94.31 Abnormal electrocardiogram [ECG] [EKG] (principal); I45.19 Other right bundle-branch block; I49.3 Ventricular premature depolarization; I48.0 Paroxysmal atrial fibrillation; I49.1 Atrial premature depolarization; I10 Essential (primary) hypertension; E78.5 Hyperlipidemia, unspecified; M19.90 Unspecified osteoarthritis, unspecified site; I25.810 Atherosclerosis of coronary artery bypass graft(s) without angina pectoris; I25.2 Old myocardial infarction; Z79.82 Long term (current) use of aspirin; Z79.899 Other long term (current) drug therapy; Z88.5 Allergy status to narcotic agent; Z88.1 Allergy status to other antibiotic agents; Z95.1 Presence of aortocoronary bypass graft; Z90.49 Acquired absence of other specified parts of digestive tract; Z82.49 Family history of ischemic heart disease and other diseases of the circulatory system ==

== ENCOUNTER → 2020-12-15 | Outpatient (CLI) | payer OTHER | LOC: SJCVC 09:50 | PROVIDERS: ATTEND Internal Medicine Cardiovascular Disease | DX: R94.31 Abnormal electrocardiogram [ECG] [EKG] (principal); I45.10 Unspecified right bundle-branch block; I25.10 Atherosclerotic heart disease of native coronary artery without angina pectoris; I49.1 Atrial premature depolarization; I10 Essential (primary) hypertension; I48.0 Paroxysmal atrial fibrillation; E78.00 Pure hypercholesterolemia, unspecified; M19.90 Unspecified osteoarthritis, unspecified site; Z79.82 Long term (current) use of aspirin; Z79.899 Other long term (current) drug therapy; Z88.5 Allergy status to narcotic agent; Z88.8 Allergy status to other drugs, medicaments and biological substances; Z95.1 Presence of aortocoronary bypass graft ==

== ENCOUNTER → 2021-02-21 | Outpatient (CLI) | payer OTHER | LOC: RAD 16:11 | PROVIDERS: ATTEND Family Medicine | DX: M79.89 Other specified soft tissue disorders (principal); M25.571 Pain in right ankle and joints of right foot ==

== ENCOUNTER → 2021-03-08 | Outpatient (CLI) | payer OTHER | LOC: SJCVC 15:16 | PROVIDERS: ATTEND Internal Medicine Cardiovascular Disease | DX: I48.0 Paroxysmal atrial fibrillation (principal); I49.1 Atrial premature depolarization; I25.10 Atherosclerotic heart disease of native coronary artery without angina pectoris; E78.5 Hyperlipidemia, unspecified; M19.90 Unspecified osteoarthritis, unspecified site; Z90.49 Acquired absence of other specified parts of digestive tract; Z88.5 Allergy status to narcotic agent; Z88.8 Allergy status to other drugs, medicaments and biological substances; Z98.890 Other specified postprocedural states; Z95.1 Presence of aortocoronary bypass graft; Z79.82 Long term (current) use of aspirin; Z79.899 Other long term (current) drug therapy; Z82.49 Family history of ischemic heart disease and other diseases of the circulatory system ==

== ENCOUNTER → 2021-04-12 | Outpatient (CLI) | payer OTHER | LOC: SJCVC 13:30 | PROVIDERS: ATTEND Internal Medicine Cardiovascular Disease | DX: R94.31 Abnormal electrocardiogram [ECG] [EKG] (principal); I48.0 Paroxysmal atrial fibrillation; I49.1 Atrial premature depolarization; I49.3 Ventricular premature depolarization; I10 Essential (primary) hypertension; E78.5 Hyperlipidemia, unspecified; M19.90 Unspecified osteoarthritis, unspecified site; I25.10 Atherosclerotic heart disease of native coronary artery without angina pectoris; E78.00 Pure hypercholesterolemia, unspecified; I25.2 Old myocardial infarction; Z95.1 Presence of aortocoronary bypass graft; Z90.49 Acquired absence of other specified parts of digestive tract; Z98.890 Other specified postprocedural states; Z88.5 Allergy status to narcotic agent; Z88.8 Allergy status to other drugs, medicaments and biological substances; Z79.82 Long term (current) use of aspirin; Z79.899 Other long term (current) drug therapy; Z82.49 Family history of ischemic heart disease and other diseases of the circulatory system ==

== ENCOUNTER 2021-05-24 21:29 | Inpatient (IN) | payer OTHER ==
[~2021-05-24] VITALS: Ht 188 cm; Wt 93.9 kg
[2021-05-24 21:35] VITALS: BP 159/69
[2021-05-24] MEDS ORDERED: MULTAQ 400 MG400 MG PO (21:46)
[2021-05-24] MEDS ORDERED: NORCO 10-325 T1 EACH PO (21:47)
[2021-05-24] MEDS ORDERED: NITROSTAT0.3 MG SUBLING (21:48)
[2021-05-24 22:56] LABS: ABSOLUTE NEUTROPHILS 9.3 thou/uL (1.4-8.2); BASOPHILS 0.2 % (0.0-2.0); HEMATOCRIT 37.7 % (42.0-52.0); HEMOGLOBIN 12.7 gm/dL (14.0-18.0); LYMPHOCYTES 7.5 % (24.0-44.0); MCH 30.6 pg (26.0-34.0); MCHC 33.8 g/dL (28.0-37.0); MCV 90.5 fL (80.0-100.0); MONOCYTES 8.7 % (1.0-8.0); PLATELET COUNT 189 thou/uL (150-400); POLYS 83.6 % (36.0-66.0); RBC 4.16 mil/uL (4.50-6.00); WBC 11.1 thou/uL (4.0-11.0)
[2021-05-24 23:01] LABS: CALCIUM 8.8 mg/dL (8.5-10.1); CREATININE 1.7 mg/dL (0.7-1.3)
[2021-05-24 23:09] LABS: APTT 27.3 Seconds (24.5-32.8); INR 1.09; PROTIME 11.8 Seconds (10.5-12.1)
[2021-05-25 00:09] VITALS: BP 162/80
--- NOTE | 2021-05-25 01:39 | H ---
[facility] [place] [address] HISTORY AND PHYSICAL Name: ALEXANDER MURCIA Room #: 170-14 ADM IN M.R.#: [id number] Admission: 05/25/21 Attend Phys: Brian Schmidt MD Discharge: Date of : 48 Report #: [id number] THIS REPORT FOR: cc: Babak Guzmán MD, Rene P. MD Clymer, David J. MD ~ DATE OF SERVICE: 05/24/2021 HISTORY OF PRESENT ILLNESS: This 70-year-old gentleman presents with severe pain and swelling involving the left lower leg. Symptoms started yesterday when he was jogging gently on the [place] and felt a popping sensation at the left knee for posterior calf region. Since then, he has had gradually progressive swelling and markedly progressive pain. His history is notable for previous atrial fibrillation and chronic anticoagulation treatment on Eliquis. He also has a history of heart disease with previous coronary artery bypass graft. I believe it is most probably had a calf muscle stretch or tear, which resulted in bleeding, which has become excessive as a result of his anticoagulation and has advanced to cause significant swelling in the left calf with a potential compartment syndrome. At the time of my evaluation earlier today, I noted moderately severe swelling of the left calf with significant tenderness and some increased pain with both dorsiflexion and plantarflexion. He seemed to have good perfusion of the foot and satisfactory sensation now. OBJECTIVE: GENERAL: He is alert and oriented and is moderately uncomfortable at rest. He denies any symptoms in other areas aside from the left lower leg. CARDIAC: Reveals a generally regular rate and rhythm with a few premature beats. ABDOMEN: Soft and nontender. LUNGS: Clear. MUSCULOSKELETAL: Left lower extremity is notable for significant swelling about the calf with rather marked pain in the posterior aspect and mild to moderate pain in the anterolateral aspect. He has increased pain with passive dorsiflexion and mild pain with passive plantar flexion. He seems to have some dysesthesia throughout the foot. The foot and toes are well perfused and warm and there seems to be adequate pulse at the posterior tibial pulse. IMAGING: X-rays earlier today demonstrate mild degenerative change at the knee, but no evidence of significant bony injury. IMPRESSION: I think this gentleman's history is most consistent with a moderately severe soft tissue sprain involving the calf, probably with bleeding and deep hematoma. This has resulted in excessive calf swelling with increased pressure and potential compartment syndrome. We have discussed conservative [facility] [address] [place] [address] HISTORY AND PHYSICAL Name: ALEXANDER MURCIA Room #: 170-14 ADM IN .R.#: [id number] Admission: 05/25/21 Attend Phys: Brian Schmidt MD Discharge: Date of : 46 Report #: [id number] management with rest, elevation and pain medication, but his symptoms seem to be getting gradually worse through the day. We attempted a percutaneous pressure measurements with a [place] device, but the results are either a markedly elevated or more probably inconclusive with poor functioning of the device. The actual measurements by Dr. Dickens in the Emergency Department were estimated at about 190. Given his clinical findings, I think it is most reasonable to proceed with surgical fasciotomy involving the left leg. I think his pressure measurements would certainly support the need for emergent surgery even though the actual numbers may be spurious as noted above. I think we clearly need to open the posterior compartments. I would anticipate a more limited fasciotomy at the anterior and anterolateral compartments as he not symptomatic in that area. We have discussed potential risks and benefits of both nonsurgical and surgical management. The patient and his seemed both understand well and wished to proceed at this time. <ELECTRONICALLY SIGNED> By: Jefferson Donato MD 05/25/21 0139 [id number] 0000 Jefferson Donato MD /nt
[2021-05-25 04:33] VITALS: BP 139/71
--- NOTE | 2021-05-25 06:30 | NUR ---
TPDAY THIS PT WAS A NEW ADMISSION THAT HAS JUST GOTTEN SURGERY ON HIS LEFT LEG. HE HAS HAD SOME STATED PAIN IN WHICH IT WAS TAKEN CARE OF WITH MEDICATION. HE HAS BEEN TOLERATING HIS FLUIDS WELL AND HAS OTHERWISE BEEN ASLEEP FOR SOME OF THE NIGHT AWAITING FOR THE NEXT PLAN.
[2021-05-25 07:24] VITALS: BP 145/68
--- NOTE | 2021-05-25 08:41 | O ---
[facility] [place] [address] OPERATIVE REPORT Name: ALEXANDER MURCIA [facility] [id number] Admission: 05/25/21 Attend Phys: Jefferson Donato MD Discharge: Date of : 46 Report #: [id number] THIS REPORT FOR: cc: Babak Guzmán MD, Rene P. MD Clymer, David J. MD ~ DATE OF SERVICE: 05/25/2021 PREOPERATIVE DIAGNOSIS: Left lower leg compartment syndrome with posterior compartment hematoma. POSTOPERATIVE DIAGNOSIS: Left lower leg compartment syndrome with posterior compartment hematoma. PROCEDURE: Left lower leg 4-compartment fasciotomy. SURGEON: Jefferson Donato MD. INDICATIONS: This 70-year-old gentleman injured the left leg while jogging about one day ago. He has had progressive pain and marked swelling, probably related to his anticoagulation and significant expanding hematoma in the left calf. This has resulted in a compartment syndrome with marked pain and some gradual loss of sensation and function. We have elected to go ahead with emergent fasciotomy. DESCRIPTION OF PROCEDURE: The patient was taken to the operating room where he was placed under brief general anesthetic. Prophylactic intravenous antibiotics were administered. The left lower extremity was meticulously prepped and draped. A longitudinal skin incision was made over the medial border of the calf extending about 3-4 cm posterior to the medial tibial crest. The fascia was incised longitudinally and the muscle was found to be markedly edematous and bulged out rather dramatically. There was also an obvious deep hematoma, which appeared to be involving both the deep and posterior compartments. This was evacuated with suction and gentle digital massage. A good deal of clot was evacuated. There was only limited amount of ongoing bleeding. The fasciotomy was extended somewhat more proximal and distal in a subcutaneous fashion. I could palpate well above and below the skin incision and the compartment seemed to be nicely and fully decompressed. Palpation of the muscles suggest that there was probably some tearing of the gastroc muscle, but without a marked defect, I felt the findings were most consistent with a muscle injury with enlarging hematoma causing his compartment syndrome in this area. This fasciotomy seemed to resolve that problem nicely. The anterolateral compartments were mildly tight and probably not severely involved with compartment syndrome; however, given his subjective discomfort in that region and some numbness over the anterolateral aspect of the leg, I felt a [facility] [address] [place] [address] OPERATIVE REPORT Name: ALEXANDER MURCIA Room #: 447-P [facility] Sari#: [id number] Admission: 05/25/21 Attend Phys: Jefferson Donato MD Discharge: Date of : 48 Report #: [id number] more limited fasciotomy in that area was probably also necessary. A small incision was made over the anterolateral aspect and the fascia was incised. The muscle was edematous and bulged forward to some extent, but not nearly as severe as in the posterior compartment. I did extend the fasciotomy in this area in a subcutaneous fashion both proximally and distally. I could palpate extensively up and down the leg and the compartment seemed to be nicely decompressed without any significant ongoing pressure. This area was copiously irrigated as was the posterior compartment. No further bleeding was noted. The muscle in each area seemed to be viable and responsive to gentle manipulation with sharp pickups. There was obvious good muscle contraction suggesting satisfactory muscle viability. No other abnormalities were identified. The wounds were further gently irrigated and then left open and covered with a Xeroform gauze, soft gauze and a soft roll with a gentle Ildefonso wrap for support. The foot remains well perfused and is pink and warm with satisfactory pulses. The patient was then awakened and returned to recovery room in good condition. <ELECTRONICALLY SIGNED> By: Jefferson Donato MD 05/25/21 0841 0031 0106 Jefferson Donato MD /nt
--- NOTE | 2021-05-25 09:11 | EKG ---
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[id number] Requested By: Dia Dickens Order Number: [id number] MD: Alton Bertrand Measurements Intervals [place] Rate: 85 P: 71 NE: 162 QRS: 67 QRSD: 104 T: -70 QT: 375 QTc: 446 Interpretive Statements Sinus rhythm Borderline repolarization abnormality Compared to ECG 03/09/2020 07:35:[address] and T wave abnormality is new Electronically Signed On 05-25-2021 9:11:39 CDT by Alton Bertrand [email or web address] <ELECTRONICALLY SIGNED> By: Alton Bertrand MD, [facility] 05/25/21 0911 [id number] Alton Bertrand MD, FACC /EPI
--- NOTE | 2021-05-25 11:31 | NUR ---
Met with patient and at bedside. patient fell while walking. Sustained hematoma/compartment syndrome in calf. Patient rec sx and planned I/D in am. Therapy plan eval tomorrow. Patient reports he has had knee sx in past and has crutches. His crutches at bedside. patient reports he has used crutches since saturday and familiar with them. Patient resides at home with all needs on one level with step inside from garage. PCP Dr Guzmán. Independent with [employer]ls [employer]. He golf 2x a week, retired, walks 5 miles daily. Reviewed role of casemgt plan to follow for dc needs.
--- NOTE | 2021-05-25 12:43 | NUR ---
A/O X 4. Room air. Stand by assist. left ac IV with LR infusing @ 100 mls/hr. Left leg is wrapped with kerlex and jeb wrap and is bleeding bright red blood through the bandage- Dr. Donato came in and saw the bleeding and he told nurse not to redress it but to reinforce the dressing with more jeb wrap. Nurse reinforced lefg leg dressing. His is at bedside. Will be NPO after midnight. No current complaints of pain.
[2021-05-25 15:35] VITALS: BP 130/69
[2021-05-25 19:36] VITALS: BP 136/75
--- NOTE | 2021-05-26 04:19 | NUR ---
PT BEEN PLEASANT THRO THE NIGHT. HE MAKES NEEDS KNOWN. LLE ELEVATED ON PILLOW, OOZING FROM INCISION NOTED THRO THE DRESSING-BLOODY. GOOD SENSATION AND CIRCULATION NOTED TO TOES.PT REPORTS SWELLING IS WAY DOWN AND DENIES ANY PAIN -HE HAS SOME MILD DISCOMFORT TO THE KNEE.USES URINAL, VOIDING ADEQUATELY-BP STABLE, CONTINUES ON IV FLUIDS, ONE TIME TYLENOL GIVEN FOR A SOME HEADACHE WITH RELIEF.PLAN FOR WOUND DEBRIDEMENT AND POSSIBLE CLOSURE.NO FURTHER CONCERNS.
[2021-05-26 04:50] VITALS: BP 172/87
[2021-05-26 06:11] LABS: HEMATOCRIT 31.6 % (42.0-52.0); HEMOGLOBIN 10.8 gm/dL (14.0-18.0); MCH 31.6 pg (26.0-34.0); MCHC 34.3 g/dL (28.0-37.0); RBC 3.43 mil/uL (4.50-6.00); RDW 13.8 % (10.5-14.5); WBC 8.4 thou/uL (4.0-11.0)
[2021-05-26 06:23] LABS: CALCIUM 8.3 mg/dL (8.5-10.1); CREATININE 1.5 mg/dL (0.7-1.3); POTASSIUM 3.8 mmol/L (3.5-5.1)
[2021-05-26 06:25] VITALS: BP 130/71
--- NOTE | 2021-05-26 10:14 | NUR ---
A/O X 4. Room air. One assist to help with bilateral cructhes. Had closure of left leg surgical site today-jeb isaacs. No drainage noted. No pain noted. at bedside. Pending discharge later if pain controlled.
--- NOTE | 2021-05-26 11:08 | O ---
[facility] [place] [address] OPERATIVE REPORT Name: ALEXANDER MURCIA Room #: 447-P [facility] IN M.R.#: [id number] Admission: 05/25/21 Attend Phys: Jefferson Donato MD Discharge: Date of : 46 Report #: [id number] THIS REPORT FOR: cc: Babak Guzmán MD, Rene P. MD Clymer, David J. MD ~ DATE OF SERVICE: 05/26/2021 PREOPERATIVE DIAGNOSIS: Compartment syndrome, left leg with deep calf hematoma. POSTOPERATIVE DIAGNOSIS: Compartment syndrome, left leg with deep calf hematoma. PROCEDURE: Irrigation and evacuation of hematoma, left calf and wound closure. SURGEON: Jefferson Donato MD. INDICATIONS: This 70-year-old gentleman developed marked swelling and pain involving the left calf after a simple running or jogging event which occurred several days ago. He is on chronic anticoagulation and he developed marked bleeding and swelling after what appears to be a minor calf muscle injury. He had evidence of compartment syndrome and so was taken to the operating room, about 36 hours ago and a 4-compartment fasciotomy was performed. He had marked symptomatic improvement. There was a sizable hematoma, which was evacuated, which seemed to solve the issue nicely. The muscle and soft tissues appeared to be viable and healthy aside from the new injury. He has been very comfortable over the past 24 hours and has no significant ongoing pain nor any neurologic or vascular problems. Given this, we elected to come back for wound debridement, irrigation and possible wound closure. DESCRIPTION OF PROCEDURE: The patient was taken to the operating room where he was placed under brief general anesthetic. He is on Ancef antibiotic regimen at this time. The left leg and foot were meticulously prepped and draped. The small anterolateral incision and the somewhat larger medial incision were both thoroughly irrigated. There was some clot in the posterior compartment, which was gently irrigated and evacuated. There were a few small superficial bleeders, which were controlled with cautery until it is pink and responds nicely to stimulation appears to be viable. There is no evidence of significant ongoing bleeding and no evidence of infection. The skin edges are healthy and viable and there is not excessive pressure at this point. Given this, I felt wound closure was appropriate. The fascia and muscle layer were left unchanged and no subcutaneous sutures were used. The skin edges were gently reapproximated and closed with skin marv. A gently compressive dressing was [address] [address] OPERATIVE REPORT Name: ALEXANDER MURCIA Room #: 447-P [facility] IN M.R.#: [id number] Admission: 05/25/21 Attend Phys: Jefferson Donato MD Discharge: Date of : 46 Report #: [id number] then applied. The patient was awakened and returned to recovery room in good condition. <ELECTRONICALLY SIGNED> By: Jefferson Donato MD 05/26/21 1108 Jefferson Donato MD /syd
--- NOTE | 2021-05-26 14:46 | NUR ---
PT HAD ADDITIONAL PROCEDURE THIS MORNING. PT INDICATED NEED FOR TALLER CRUTCHES. THEY WERE ORDERED THROUGH [employer] AND DELIVERED TO PT. IT IS ANTIPATED THAT PT WILL BE MEDICALLY STABLE TO DC HOME THIS DAY. PT WAITING TO SEE HOUSE HE FEELS AFTER DINNER. PT TO DC HOME TO SELF CARE. NO OTHER CM INTERVENTION INDICATED. CASE CLOSED.
[2021-05-26 15:04] VITALS: BP 130/71
[2021-05-26 16:00] VITALS: BP 129/54
[2021-05-26 16:54] VITALS: BP 130/71
== END 2021-05-26 18:11 | disposition home or self-care (01) | DRG 501 ==
LOC: ER 21:29 → EROBS 05-25 00:42 → 4S 05-25 00:42 → EROBS 05-25 00:42 → 4S 05-25 02:30
PROVIDERS: Emergency Medicine; Nurse Practitioner Family; ADMIT Orthopaedic Surgery; ATTEND Orthopaedic Surgery
PROC: 0KNT0ZZ Release Left Lower Leg Muscle, Open Approach (ICD-10-PCS; principal; 2021-05-25)
PROC: 4A0F3BE Measurement of Musculoskeletal Pressure, Compartment, Percutaneous Approach (ICD-10-PCS; principal; 2021-05-25)
PROC: 0Y3J0ZZ Control Bleeding in Left Lower Leg, Open Approach (ICD-10-PCS; 2021-05-26)
DX: M79.A22 Nontraumatic compartment syndrome of left lower extremity (principal); N17.9 Acute kidney failure, unspecified; S80.12XA Contusion of left lower leg, initial encounter; E78.5 Hyperlipidemia, unspecified; N18.9 Chronic kidney disease, unspecified; I48.0 Paroxysmal atrial fibrillation; Z20.822 Contact with and (suspected) exposure to COVID-19; E78.00 Pure hypercholesterolemia, unspecified; I12.9 Hypertensive chronic kidney disease with stage 1 through stage 4 chronic kidney disease, or unspecified chronic kidney disease; I25.2 Old myocardial infarction; Z95.1 Presence of aortocoronary bypass graft; Z88.6 Allergy status to analgesic agent; Z88.8 Allergy status to other drugs, medicaments and biological substances; X58.XXXA Exposure to other specified factors, initial encounter; Y93.89 Activity, other specified; Y92.89 Other specified places as the place of occurrence of the external cause; Y99.8 Other external cause status; Z79.01 Long term (current) use of anticoagulants; Z79.82 Long term (current) use of aspirin; Z79.899 Other long term (current) drug therapy; Z82.49 Family history of ischemic heart disease and other diseases of the circulatory system
CPT/HCPCS: 10195; 50010; 50101; 50386; 51412; 57091; 62110; 62900; 70005

== ENCOUNTER → 2021-06-09 | Outpatient (CLI) | payer OTHER ==
[~2021-06-09] MED LIST changes: +MULTAQ 400 MG400 MG PO; +NITROSTAT0.3 MG SUBLING; +NORCO 10-325 T1 EACH PO
== END ==
LOC: SJCVC 10:37
PROVIDERS: ATTEND Internal Medicine Cardiovascular Disease
DX: R94.31 Abnormal electrocardiogram [ECG] [EKG] (principal); I45.10 Unspecified right bundle-branch block; I48.0 Paroxysmal atrial fibrillation; I25.10 Atherosclerotic heart disease of native coronary artery without angina pectoris; I10 Essential (primary) hypertension; E78.00 Pure hypercholesterolemia, unspecified; Z88.1 Allergy status to other antibiotic agents; Z79.82 Long term (current) use of aspirin; Z79.899 Other long term (current) drug therapy; Z95.1 Presence of aortocoronary bypass graft

== ENCOUNTER → 2021-06-21 | Outpatient (CLI) | payer OTHER | LOC: SJCVC 14:44 | PROVIDERS: ATTEND Internal Medicine Cardiovascular Disease | DX: I48.91 Unspecified atrial fibrillation (principal); I48.92 Unspecified atrial flutter; I10 Essential (primary) hypertension; E78.5 Hyperlipidemia, unspecified; I25.10 Atherosclerotic heart disease of native coronary artery without angina pectoris; Z88.5 Allergy status to narcotic agent; Z88.8 Allergy status to other drugs, medicaments and biological substances; Z79.82 Long term (current) use of aspirin; Z79.891 Long term (current) use of opiate analgesic; Z79.899 Other long term (current) drug therapy; E78.00 Pure hypercholesterolemia, unspecified; Z95.818 Presence of other cardiac implants and grafts; Z95.1 Presence of aortocoronary bypass graft ==

== ENCOUNTER → 2021-09-07 | Outpatient (CLI) | payer OTHER | LOC: SJCVC 13:33 | PROVIDERS: ATTEND Internal Medicine Cardiovascular Disease | DX: R94.31 Abnormal electrocardiogram [ECG] [EKG] (principal); I45.10 Unspecified right bundle-branch block; I25.10 Atherosclerotic heart disease of native coronary artery without angina pectoris; I10 Essential (primary) hypertension; I48.0 Paroxysmal atrial fibrillation; E78.00 Pure hypercholesterolemia, unspecified; M19.90 Unspecified osteoarthritis, unspecified site; T79.A22D Traumatic compartment syndrome of left lower extremity, subsequent encounter; Z79.82 Long term (current) use of aspirin; Z79.899 Other long term (current) drug therapy; Z88.8 Allergy status to other drugs, medicaments and biological substances ==